=== PATIENT | female | born 2000 | race Caucasian/White ===

== ENCOUNTER 2021-02-13 17:29 | Emergency (ER) | payer OTHER ==
[~2021-02-13 17:29] MED LIST: BENTYL 20MG TAB20 MG PO; ZOFRAN ODT 4 MG4 MG PO
[2021-02-13 18:13] LABS: HEMOGLOBIN 12.1 gm/dl (12.3-15.3); RED BLOOD COUNT 4.12 M/UL (4.00-5.10); WHITE BLOOD COUNT 6.1 K/UL (4.5-11.0)
[2021-02-13 18:33] LABS: BUN/CREATININE RATIO 7 (0-10)
[2021-02-13] MEDS ORDERED: MACROBID 100 M100 MG PO (21:51)
== END 2021-02-13 22:10 | disposition home or self-care (01) ==
LOC: ER1 17:29
PROVIDERS: Physician Assistant
DX: O23.42 Unspecified infection of urinary tract in pregnancy, second trimester (principal); Z79.899 Other long term (current) drug therapy; Z3A.18 18 weeks gestation of pregnancy
CPT/HCPCS: 80053; 81001; 85025; 99284

== ENCOUNTER 2021-05-07 18:50 | Outpatient (CLI) | payer OTHER ==
[~2021-05-07 18:50] MED LIST changes: +MACROBID 100 M100 MG PO
== END 2021-05-07 21:17 | disposition home or self-care (01) ==
LOC: GENOP 18:50
DX: O99.891 Other specified diseases and conditions complicating pregnancy (principal); R51.9 Headache, unspecified; R42 Dizziness and giddiness; R53.1 Weakness; H53.9 Unspecified visual disturbance; Z91.013 Allergy to seafood; Z3A.30 30 weeks gestation of pregnancy
CPT/HCPCS: 81001; 96360

== ENCOUNTER 2021-05-18 12:58 | Outpatient (CLI) | payer OTHER | END 2021-05-19 12:06 | disposition home or self-care (01) | LOC: GENOP 12:58 | DX: O47.03 False labor before 37 completed weeks of gestation, third trimester (principal); O46.93 Antepartum hemorrhage, unspecified, third trimester; O99.343 Other mental disorders complicating pregnancy, third trimester; F41.9 Anxiety disorder, unspecified; F43.10 Post-traumatic stress disorder, unspecified; F32.9 Major depressive disorder, single episode, unspecified; O99.013 Anemia complicating pregnancy, third trimester; D64.9 Anemia, unspecified; Z91.410 Personal history of adult physical and sexual abuse; Z91.013 Allergy to seafood; Z91.048 Other nonmedicinal substance allergy status; Z3A.32 32 weeks gestation of pregnancy | CPT/HCPCS: 96360; 96361; 96372; 96374; 96375; J0702; J2300; J2405; J3105; J7120 ==

== ENCOUNTER 2021-06-09 15:38 | Outpatient (CLI) | payer OTHER | END 2021-06-09 22:30 | disposition home or self-care (01) | LOC: GENOP 15:38 | DX: O99.891 Other specified diseases and conditions complicating pregnancy (principal); R10.9 Unspecified abdominal pain; R10.2 Pelvic and perineal pain; O99.343 Other mental disorders complicating pregnancy, third trimester; F41.9 Anxiety disorder, unspecified; F32.9 Major depressive disorder, single episode, unspecified; F43.10 Post-traumatic stress disorder, unspecified; O99.013 Anemia complicating pregnancy, third trimester; D64.9 Anemia, unspecified; Z91.013 Allergy to seafood; Z91.048 Other nonmedicinal substance allergy status; Z3A.35 35 weeks gestation of pregnancy | CPT/HCPCS: 81001; 96360; 96366; 96372; J0696; J7121 ==

== ENCOUNTER 2021-07-08 17:04 | Inpatient (IN) | payer OTHER ==
[~2021-07-08] VITALS: Ht 152.4 cm; Wt 67.1 kg
[2021-07-08 18:42] LABS: HEMOGLOBIN 11.1 gm/dl (12.3-15.3); RED BLOOD COUNT 4.65 M/UL (4.00-5.10); WHITE BLOOD COUNT 8.2 K/UL (4.5-11.0)
[2021-07-09] MEDS ORDERED: HEMOCYTE324 MG PO (16:20)
[2021-07-09] MEDS ORDERED: COLACE100 MG PO (16:20)
[2021-07-09] MEDS ORDERED: IBUPROFEN800 MG PO (16:20)
[2021-07-10 06:57] LABS: HEMOGLOBIN 9.8 gm/dl (12.3-15.3)
== END 2021-07-11 11:42 | disposition home or self-care (01) | DRG 807 ==
LOC: GENOP 17:04 → OB 17:42
PROVIDERS: ADMIT Obstetrics & Gynecology
PROC: 10E0XZZ Delivery of Products of Conception, External Approach (ICD-10-PCS; principal; 2021-07-09)
PROC: 10907ZC Drainage of Amniotic Fluid, Therapeutic from Products of Conception, Via Natural or Artificial Opening (ICD-10-PCS; 2021-07-09)
PROC: 10H07YZ Insertion of Other Device into Products of Conception, Via Natural or Artificial Opening (ICD-10-PCS; 2021-07-09)
PROC: 3E033VJ Introduction of Other Hormone into Peripheral Vein, Percutaneous Approach (ICD-10-PCS; 2021-07-09)
DX: O99.344 Other mental disorders complicating childbirth (principal); Z37.0 Single live birth; F43.10 Post-traumatic stress disorder, unspecified; F41.9 Anxiety disorder, unspecified; Z20.822 Contact with and (suspected) exposure to COVID-19; F32.9 Major depressive disorder, single episode, unspecified; Z3A.39 39 weeks gestation of pregnancy
CPT/HCPCS: 36415; 51702; 81001; 85014; 85018; 85025; 90471; 90715; J2405; J2590; J3010; J7120

== ENCOUNTER 2021-09-23 17:00 | Emergency (ER) | payer OTHER ==
[~2021-09-23 17:00] MED LIST changes: +COLACE100 MG PO; +HEMOCYTE324 MG PO; +IBUPROFEN800 MG PO
[2021-09-23 20:14] LABS: HEMOGLOBIN 13.9 gm/dl (12.3-15.3); RED BLOOD COUNT 5.53 M/UL (4.00-5.10)
[2021-09-23 20:34] LABS: BUN/CREATININE RATIO 14 (0-10)
== END 2021-09-23 22:06 | disposition home or self-care (01) ==
LOC: ER1 17:00
PROVIDERS: Physician Assistant
DX: R53.83 Other fatigue (principal)
CPT/HCPCS: 80053; 81001; 83735; 84439; 84443; 84703; 85025; 87086; 99283

== ENCOUNTER 2022-01-09 13:46 | Emergency (ER) | payer OTHER ==
[2022-01-09 14:50] LABS: HEMOGLOBIN 10.9 gm/dl (12.3-15.3); RED BLOOD COUNT 4.21 M/UL (4.00-5.10); WHITE BLOOD COUNT 6.6 K/UL (4.5-11.0)
[2022-01-09 15:15] LABS: BUN/CREATININE RATIO 12 (0-10)
== END 2022-01-09 18:50 | disposition home or self-care (01) ==
LOC: ER1 13:46
PROVIDERS: Emergency Medicine
DX: R07.9 Chest pain, unspecified (principal); E78.5 Hyperlipidemia, unspecified; Z20.822 Contact with and (suspected) exposure to COVID-19; F17.290 Nicotine dependence, other tobacco product, uncomplicated
CPT/HCPCS: 71045; 80053; 82550; 82553; 83690; 83735; 83880; 84100; 84439; 84443; 84484; 84703; 85025; 85379; 85610; 85730; 93005; 96374; 96375; 99285; J2270; J2405; U0002